=== PATIENT | male | born 1980 | race Two or more races ===

== ENCOUNTER 2017-10-30 09:40 | Emergency (ER) | payer MEDICAID ==
[~2017-10-30] VITALS: Ht 170.2 cm; Wt 98.0 kg
[2017-10-30] MEDS ORDERED: ZYRTEC10 M1 PO (10:02)
== END 2017-10-30 10:13 | disposition home or self-care (01) ==
LOC: ER 09:40
DX: J30.2 Other seasonal allergic rhinitis (principal); Z79.899 Other long term (current) drug therapy
CPT/HCPCS: 96372; 99283; J3301